=== PATIENT | female | born 1955 | race Caucasian/White ===

== ENCOUNTER 2019-09-18 11:52 | Emergency (ER) | payer BC ==
[~2019-09-18] VITALS: Ht 172.7 cm; Wt 106.4 kg
[2019-09-18 12:35] LABS: BASOPHILS # (AUTO) 0.1 X10'3 (0-0.2); BASOPHILS % (AUTO) 0.8 % (0-1); EOSINOPHILS # (AUTO) 0.4 X10'3 (0-0.9); EOSINOPHILS % (AUTO) 3.5 % (0-6); HEMATOCRIT 36.2 % (35.0-45.0); HEMOGLOBIN 12.2 g/dl (12.0-16.0); LYMPHOCYTES # (AUTO) 1.8 X10'3 (1.1-4.8); LYMPHOCYTES % (AUTO) 16.6 % (21-51); MEAN CORPUSCULAR HEMOGLOBIN 29.7 PG (27.0-31.0); MEAN CORPUSCULAR HGB CONC 33.6 g/dL (33.0-36.5); MEAN CORPUSCULAR VOLUME 88.2 FL (78-98); MEAN PLATELET VOLUME 8.2 FL (7.4-10.4); MONOCYTES # (AUTO) 0.9 X10'3 (0-0.9); MONOCYTES % (AUTO) 8.6 % (2-12); NEUTROPHILS # (AUTO) 7.5 X10'3 (1.8-7.7); NEUTROPHILS % (AUTO) 70.5 % (42-75); PLATELET COUNT 402 X10'3 (140-440); RED BLOOD COUNT 4.11 X10'6 (4.20-5.60); RED CELL DISTRIBUTION WIDTH 13.6 % (11.5-14.5); WHITE BLOOD COUNT 10.7 X10'3 (4.5-11.0)
[2019-09-18 12:47] LABS: ALANINE AMINOTRANSFERASE 53 U/L (12-78); ALBUMIN 3.2 G/DL (3.4-5.0); ALBUMIN/GLOBULIN RATIO 0.7 (1.1-1.5); ALKALINE PHOSPHATASE 130 IU/L (46-116); ANION GAP 5 (8-16); ASPARTATE AMINO TRANSFERASE 29 U/L (10-37); BILIRUBIN,TOTAL 0.2 MG/DL (0.1-1.0); BLOOD UREA NITROGEN 14 MG/DL (7-18); BUN/CREATININE RATIO 16.5 (6.6-38.0); CALCIUM 10.5 MG/DL (8.5-10.1); CHLORIDE 106 MMOL/L (99-107); CREATININE 0.85 MG/DL (0.40-0.90); GLUCOSE 148 MG/DL (70-104); POTASSIUM 3.6 MMOL/L (3.5-5.1); SODIUM 143 MMOL/L (135-145); TOTAL PROTEIN 7.6 G/DL (6.4-8.2); eGFR 67 ML/MIN
[2019-09-18] MEDS ORDERED: CefTRIAXone 2gm/D5W 50ml 50 ML IV ONE (12:50)
[2019-09-18] MEDS ORDERED: azithromycin 250mg tablet PO ONE (12:50)
[2019-09-18] MEDS ORDERED: BENZ-16 PO ×2 (13:08→15:36)
[2019-09-18] MEDS ORDERED: AZIT-63 PO ×2 (13:08→15:36)
[2019-09-18] MEDS ORDERED: ALBU8.5H8 IH ×2 (13:08→15:36)
[2019-09-18] MEDS ORDERED: PRED20TA PO ×2 (13:08→15:36)
[2019-09-18] MEDS ORDERED: methylPREDNISolone sod succ 125mg/2ml vial IV ONE (13:10)
[2019-09-18] MEDS ORDERED: normal saline 1000ML IV soln IVB ONE (13:25)
[2019-09-18 15:50] VITALS: BP 149/83
== END 2019-09-18 15:51 | disposition home or self-care (01) ==
LOC: ER 11:53
DX: J18.1 Lobar pneumonia, unspecified organism (principal); F17.210 Nicotine dependence, cigarettes, uncomplicated; Z88.6 Allergy status to analgesic agent; Z88.5 Allergy status to narcotic agent; Z79.2 Long term (current) use of antibiotics; Z79.899 Other long term (current) drug therapy
CPT/HCPCS: 36415; 80053; 83605; 85025; 87040; 87502; 87503; 96365; 96375; 99283; J0696; J2930; J7030

== ENCOUNTER 2020-12-10 16:53 | Emergency (ER) | payer MEDICARE ==
[~2020-12-10] VITALS: Ht 172.7 cm; Wt 102.2 kg
[~2020-12-10 16:53] MED LIST: ALPR-163 PO; ASPI-1265 PO; ATOR20TA66 PO; CLOP75TA15 PO; SERT50TA PO
[2020-12-10] MEDS ORDERED: aspirin 81mg tab.chew PO ONE (17:45)
[2020-12-10 18:12] LABS: BASOPHILS # (AUTO) 0.1 X10'3 (0-0.2); BASOPHILS % (AUTO) 0.8 % (0-1); EOSINOPHILS # (AUTO) 0.4 X10'3 (0-0.9); EOSINOPHILS % (AUTO) 4.7 % (0-6); HEMATOCRIT 37.3 % (35.0-45.0); HEMOGLOBIN 12.1 g/dl (12.0-16.0); LYMPHOCYTES % (AUTO) 24.1 % (21-51); MEAN CORPUSCULAR HGB CONC 32.6 g/dL (33.0-36.5); MEAN CORPUSCULAR VOLUME 85.9 FL (78-98); MEAN PLATELET VOLUME 8.4 FL (7.4-10.4); MONOCYTES # (AUTO) 0.6 X10'3 (0-0.9); MONOCYTES % (AUTO) 7.6 % (2-12); NEUTROPHILS # (AUTO) 5.3 X10'3 (1.8-7.7); NEUTROPHILS % (AUTO) 62.8 % (42-75); PLATELET COUNT 285 X10'3 (140-440); RED BLOOD COUNT 4.34 X10'6 (4.20-5.60); RED CELL DISTRIBUTION WIDTH 14.9 % (11.5-14.5); WHITE BLOOD COUNT 8.4 X10'3 (4.5-11.0)
[2020-12-10 18:18] LABS: ALANINE AMINOTRANSFERASE 26 U/L (12-78); ALBUMIN 3.6 G/DL (3.4-5.0); ALBUMIN/GLOBULIN RATIO 1.1 (1.1-1.5); ALKALINE PHOSPHATASE 109 IU/L (46-116); ANION GAP 7 (8-16); ASPARTATE AMINO TRANSFERASE 12 U/L (10-37); BILIRUBIN,TOTAL 0.2 MG/DL (0.1-1.0); BLOOD UREA NITROGEN 17 MG/DL (7-18); BUN/CREATININE RATIO 22.1 (6.6-38.0); CALCIUM 9.6 MG/DL (8.5-10.1); CHLORIDE 108 MMOL/L (99-107); CREATININE 0.77 MG/DL (0.40-0.90); GLUCOSE 89 MG/DL (70-104); SODIUM 146 MMOL/L (135-145); TOTAL CARBON DIOXIDE 31.2 MMOL/L (24-32); eGFR 75 ML/MIN
[2020-12-10 18:25] LABS: MAGNESIUM 1.9 MG/DL (1.5-2.4)
[2020-12-10] MEDS ORDERED: LISI10TA27 PO (18:33)
[2020-12-10 18:43] VITALS: BP 163/106
== END 2020-12-10 18:44 | disposition home or self-care (01) ==
LOC: ER 16:54
DX: I10 Essential (primary) hypertension (principal); R53.83 Other fatigue; F32.9 Major depressive disorder, single episode, unspecified; Z86.73 Personal history of transient ischemic attack (TIA), and cerebral infarction without residual deficits; Z88.5 Allergy status to narcotic agent; Z79.82 Long term (current) use of aspirin; Z79.899 Other long term (current) drug therapy
CPT/HCPCS: 36415; 71045; 80053; 83735; 83880; 84484; 85025; 93005; 99285

== ENCOUNTER 2021-02-09 11:02 | Emergency (ER) | payer MEDICARE ==
[~2021-02-09] VITALS: Ht 172.7 cm; Wt 101.0 kg
[~2021-02-09 11:02] MED LIST changes: +LISI10TA27 PO
--- NOTE | 2021-02-09 15:10 | NUR ---
US HAS FINISHED, DR Powers AWARE OF PTS C/O PAIN
[2021-02-09] MEDS ORDERED: acetaminophen 325mg tablet PO ONE (15:15)
[2021-02-09 15:40] VITALS: BP 131/81
== END 2021-02-09 15:41 | disposition home or self-care (01) ==
LOC: ER 11:03
DX: M71.21 Synovial cyst of popliteal space [Baker], right knee (principal); I10 Essential (primary) hypertension; Z86.73 Personal history of transient ischemic attack (TIA), and cerebral infarction without residual deficits; Z88.8 Allergy status to other drugs, medicaments and biological substances; Z79.82 Long term (current) use of aspirin; Z79.899 Other long term (current) drug therapy; Z79.02 Long term (current) use of antithrombotics/antiplatelets
CPT/HCPCS: 29505; 93971; 99284

== ENCOUNTER 2022-03-02 09:10 | Outpatient (CLI) | payer MEDICARE, OTHER ==
[2022-03-02] VITALS (8 sets, daily range): BP systolic 113–163; BP diastolic 48–87
[~2022-03-02] VITALS: Ht 172.7 cm; Wt 102.1 kg
[2022-03-02] MEDS ORDERED: normal saline 500ml IV soln 500 ML IV ONE (10:45)
[2022-03-02] MEDS ORDERED: metoprolol tartrate 1mg/ml inj IV PRN (10:45)
[2022-03-02] MEDS ORDERED: nitroGLYCERIN 0.4mg SUBLingual tab SL PRN (10:45)
[2022-03-02] MEDS ORDERED: regadenoson 0.4mg/5ml syringe IV ONE (10:45)
[2022-03-02] MEDS ORDERED: aminophylline 500mg/20ml vial IV PRN (10:45)
== END 2022-03-02 23:59 | disposition home or self-care (01) ==
LOC: RAD 09:10
PROVIDERS: ATTEND Internal Medicine Cardiovascular Disease
DX: I05.8 Other rheumatic mitral valve diseases (principal); G45.8 Other transient cerebral ischemic attacks and related syndromes
CPT/HCPCS: 78452; 93306; A9500; J0280; J2785; J7040

== ENCOUNTER 2023-11-01 05:34 | Day surgery (SDC) | payer MEDICARE, BC ==
[2023-10-25 16:13] LABS: BILIRUBIN,URINE NEGATIVE (Neg); CLARITY,URINE CLOUDY (Clear); COLOR,URINE YELLOW (Yellow); GLUCOSE, URINE NEGATIVE (Neg); KETONES,URINE TRACE mg/dl (Neg); LEUKOCYTE ESTERASE ,URINE NEGATIVE (Neg); NITRITES, URINE NEGATIVE (Neg); OCCULT BLOOD,URINE NEGATIVE (Neg); PROTEIN,URINE TRACE mg/dl (Neg); UROBILINOGEN,URINE 0.2 E.U/dL (0.2-1.0)
[2023-10-25 16:16] LABS: BASOPHILS # (AUTO) 0.1 X10'3 (0-0.2); BASOPHILS % (AUTO) 0.8 % (0-1); EOSINOPHILS # (AUTO) 0.3 X10'3 (0-0.9); EOSINOPHILS % (AUTO) 3.8 % (0-6); LYMPHOCYTES % (AUTO) 24.5 % (21-51); MEAN CORPUSCULAR HEMOGLOBIN 29.3 PG (27.0-31.0); MEAN CORPUSCULAR HGB CONC 33.6 g/dL (33.0-36.5); MEAN CORPUSCULAR VOLUME 87.3 FL (78-98); MEAN PLATELET VOLUME 8.7 FL (7.4-10.4); MONOCYTES # (AUTO) 0.5 X10'3 (0-0.9); MONOCYTES % (AUTO) 6.5 % (2-12); NEUTROPHILS # (AUTO) 5.2 X10'3 (1.8-7.7); NEUTROPHILS % (AUTO) 64.4 % (42-75); PRE OP HEMOGLOBIN 12.7 g/dL (12.0-16.0); PRE OP PLATELET COUNT 303 X10'3 (140-440); PRE OP WHITE BLOOD COUNT 8.1 10'3 (4.8-10.8); RED BLOOD COUNT 4.35 X10'6 (4.20-5.60); RED CELL DISTRIBUTION WIDTH 14.2 % (11.5-14.5)
[2023-10-25 16:37] LABS: UA COLLECTION TYPE NON-SPECIFIED
[2023-10-25 16:39] LABS: ALBUMIN 3.6 G/DL (3.4-5.0); ALBUMIN/GLOBULIN RATIO 0.9 (1.1-1.5); ALKALINE PHOSPHATASE 97 IU/L (46-116); BLOOD UREA NITROGEN 17 MG/DL (7-18); CALCIUM 9.8 MG/DL (8.5-10.1); CHLORIDE 107 MMOL/L (99-107); CREATININE 0.85 MG/DL (0.40-0.90); MUCUS STRANDS MODERATE /LPF (Neg); PRE OP ALT 27 U/L (30-65); PRE OP ANION GAP 6 (8-16); PRE OP AST 16 U/L (10-37); PRE OP BILIRUB, TOTAL 0.2 MG/DL (0.0-1.0); PRE OP GLUCOSE 87 MG/DL (70-104); PRE OP POTASSIUM 3.8 MMOL/L (3.4-5.1); PRE OP SODIUM 145 MMOL/L (135-145); SQUAMOUS EPITHELIAL CELL,UR MODERATE /LPF (FEW); TOTAL CARBON DIOXIDE 31.7 MMOL/L (24-32); TOTAL PROTEIN 7.4 G/DL (6.4-8.2); eGFR 67 ML/MIN
[2023-10-25 16:40] LABS: BACTERIA,URINE 1+ /HPF (Neg); RBC,URINE 0-2 /HPF (0-2); WBC,URINE 0-4 /HPF (0-4)
[2023-11-01] VITALS (35 sets, daily range): BP systolic 133–199; BP diastolic 62–92; PULSE 59–97; RESP 11–18; TEMP 97.4–98.7; O2SAT 93–100
[~2023-11-01] VITALS: Ht 172.7 cm; Wt 99.2 kg
[~2023-11-01 05:34] MED LIST changes: -ATOR20TA66 PO; -LISI10TA27 PO; +LOSA50TA64 PO; +MULT-1130 PO; +OXYC1TAB17 PO; +ROSU20TA73 PO
[2023-11-01] MEDS: famotidine 20mg tablet PO ONE (06:16)
[2023-11-01] MEDS: ceFOXitin 2GM-NS 100mL ADDvant 100 ML IV ONE (06:17)
[2023-11-01] MEDS: ringers solution, lacted 1,000 ML IV SCH ×3 (06:17→12:39)
[2023-11-01] MEDS ORDERED: clindamycin phosphate 40gm vag cream ONE (06:43)
[2023-11-01] MEDS ORDERED: BUPIVAcaine 2.5mg/ml inj 50ml vial (contains preservative) ONE (06:43)
[2023-11-01] MEDS ORDERED: neomy sulf/polymyxin B sulf. GU irrigation 1ml amp IR ONE (06:43)
[2023-11-01] MEDS ORDERED: vasoPRESSIN 20 units/ml inj. ONE (06:44)
[2023-11-01] MEDS ORDERED: fentaNYL /PF 50mcg/ml 5ml ampule ONE (07:30)
[2023-11-01] MEDS ORDERED: midazolam 1 mg/ML 2ml injection ONE (07:30)
[2023-11-01] MEDS ORDERED: propofol inj 20 ML IV ONE (07:30)
[2023-11-01] MEDS ORDERED: acetaminophen 1000 MG/100ml vial IV ONE (07:36)
[2023-11-01] MEDS ORDERED: sevoflurane 250ml liquid IH ONE (07:36)
[2023-11-01] MEDS ORDERED: morphine 2 MG/ML inj. syringe IV PRN (08:40)
[2023-11-01] MEDS ORDERED: ondansetron/PF 4mg/2ml inj IV PRN ×2 (08:40→11:50)
[2023-11-01] MEDS ORDERED: HYDROmorphone/PF 0.2 MG/ML SYRINGE IV PRN ×2 (08:40)
[2023-11-01] MEDS: BUPIVAcaine 2.5mg/ml inj 50ml vial (contains preservative) IJ ONE (09:06)
[2023-11-01] MEDS: neomy sulf/polymyxin B sulf. GU irrigation 1ml amp IR ONE (09:08)
[2023-11-01] MEDS: clindamycin phosphate 40gm vag cream VG ONE (10:26)
[2023-11-01] MEDS ORDERED: dexamethasone sod phosphate 4mg/ml inj. ONE (10:55)
[2023-11-01] MEDS ORDERED: ondansetron/PF 4mg/2ml inj ONE (10:55)
[2023-11-01] MEDS ORDERED: rocuronium 10mg/ml inj IV ONE (10:55)
[2023-11-01] MEDS ORDERED: glycopyrrolate 0.2mg/ml inj ONE (11:36)
[2023-11-01] MEDS ORDERED: neostigmine methylsulfate 1 MG/ML 10ml vial ONE (11:36)
[2023-11-01] MEDS ORDERED: fluoroscein sod 10% (100mg/ml) 5ml vial ONE (11:36)
[2023-11-01] MEDS ORDERED: normal saline 500ml IV soln 500 ML IV PRN (11:50)
[2023-11-01] MEDS ORDERED: metoclopramide 5 mg/ml inj IV PRN (11:50)
[2023-11-01] MEDS ORDERED: diphenhydrAMINE 50 mg/ml inj IV PRN (11:50)
[2023-11-01] MEDS ORDERED: LORazepam 2 mg/ml vial IV PRN (11:50)
[2023-11-01] MEDS ORDERED: temazepam 15mg capsule PO PRN (11:50)
[2023-11-01] MEDS ORDERED: magnesium hydroxide 30ml (MOM) UD suspension PO PRN (11:50)
[2023-11-01] MEDS ORDERED: traMADol 50MG tablet PO PRN (11:55)
[2023-11-01] MEDS: acetaminophen 1,000mg/100ml IV 100 ML IV ONE (12:34)
[2023-11-01] MEDS: labetalol 20mg/4ml (5mg/ml) syringe IV PRN (12:35)
[2023-11-01] MEDS: ketorolac trometh. 30mg/ml inj. IV PRN (12:50)
[2023-11-01] MEDS: hydrALAZINE 20mg/ml inj. IV PRN (13:12)
[2023-11-01] MEDS ORDERED: ALPRAZolam 0.5mg tablet PO PRN (14:00)
[2023-11-01] MEDS: morphine 4 MG/ML inj SYRINge IV PRN (14:32)
[2023-11-01] MEDS: oxyCODONE/APAP 10/325mg tablet PO PRN (17:18)
[2023-11-01] MEDS: docusate sod 100mg capsule PO SCH (20:00)
[2023-11-02 02:00] VITALS: BP 150/59; PULSE 107; RESP 18; TEMP 98.9; O2SAT 95
[2023-11-02 06:39] VITALS: BP 162/62; PULSE 16; RESP 20; TEMP 98.3; O2SAT 97
[2023-11-02 08:00] VITALS: RESP 18; O2SAT 98
[2023-11-02] MEDS: atorvastatin 20mg tablet PO SCH (08:00)
[2023-11-02] MEDS: multivitamins, therapeutics tablet PO SCH (08:07)
[2023-11-02] MEDS: enoxaparin 40mg/0.4ml syringe SQ SCH (08:07)
[2023-11-02 08:08] VITALS: BP_SYST 162; PULSE 84
[2023-11-02] MEDS: losartan 50mg tablet PO SCH (08:08)
[2023-11-02 08:27] LABS: BASOPHILS % (AUTO) 0.3 % (0-1); EOSINOPHILS % (AUTO) 0.2 % (0-6); HEMATOCRIT 34.3 % (35.0-45.0); HEMOGLOBIN 11.2 g/dl (12.0-16.0); LYMPHOCYTES # (AUTO) 1.4 X10'3 (1.1-4.8); LYMPHOCYTES % (AUTO) 10.7 % (21-51); MEAN CORPUSCULAR HEMOGLOBIN 28.8 PG (27.0-31.0); MEAN CORPUSCULAR HGB CONC 32.8 g/dL (33.0-36.5); MEAN PLATELET VOLUME 8.5 FL (7.4-10.4); MONOCYTES # (AUTO) 1.1 X10'3 (0-0.9); MONOCYTES % (AUTO) 8.1 % (2-12); NEUTROPHILS # (AUTO) 10.8 X10'3 (1.8-7.7); NEUTROPHILS % (AUTO) 80.7 % (42-75); PLATELET COUNT 282 X10'3 (140-440); RED BLOOD COUNT 3.89 X10'6 (4.20-5.60); RED CELL DISTRIBUTION WIDTH 14.1 % (11.5-14.5); WHITE BLOOD COUNT 13.4 X10'3 (4.5-11.0)
[2023-11-02 08:47] LABS: ALBUMIN 2.9 G/DL (3.4-5.0); ANION GAP 6 (8-16); BLOOD UREA NITROGEN 19 MG/DL (7-18); BUN/CREATININE RATIO 20.9 (10.0-20.0); CALCIUM 7.7 MG/DL (8.5-10.1); CHLORIDE 109 MMOL/L (99-107); CREATININE 0.91 MG/DL (0.40-0.90); GLUCOSE 119 MG/DL (70-104); POTASSIUM 4.2 MMOL/L (3.5-5.1); SODIUM 143 MMOL/L (135-145); TOTAL CARBON DIOXIDE 27.7 MMOL/L (24-32); eCRCL 60 ML/MIN; eGFR 61 ML/MIN
[2023-11-02 17:48] VITALS: RESP 17
== END 2023-11-02 18:15 | disposition home or self-care (01) ==
LOC: PAS 05:34 → ORTHO 4S 11:54 → PAS 11-02 18:15
PROVIDERS: ATTEND Obstetrics & Gynecology Obstetrics
DX: N81.89 Other female genital prolapse (principal); N72 Inflammatory disease of cervix uteri; N81.10 Cystocele, unspecified; N81.6 Rectocele; I10 Essential (primary) hypertension; F41.9 Anxiety disorder, unspecified; F32.A Depression, unspecified; G47.33 Obstructive sleep apnea (adult) (pediatric); I25.2 Old myocardial infarction; I20.9 Angina pectoris, unspecified; M19.90 Unspecified osteoarthritis, unspecified site; Z86.73 Personal history of transient ischemic attack (TIA), and cerebral infarction without residual deficits; Z79.1 Long term (current) use of non-steroidal anti-inflammatories (NSAID); Z79.899 Other long term (current) drug therapy; Z98.51 Tubal ligation status; Z88.5 Allergy status to narcotic agent; Z88.8 Allergy status to other drugs, medicaments and biological substances
CPT/HCPCS: 36415; 58552; 71046; 80048; 80053; 81001; 82948; 85025; 86885; 86900; 86901; 87081; J0131; J0360; J0694; J1100; J1650; J1885; J2250; J2270; J2405; J2704; J2710; J3010; J3490; J7030; J7120; Z7506; Z7508; Z7512; 88307; A4314; A4355; A4615; A4618; A6258; A7000; G0378

== ENCOUNTER 2024-08-05 15:22 | Outpatient (CLI) | payer MEDICARE, BC ==
[~2024-08-05 15:22] MED LIST changes: -ROSU20TA73 PO; +ROSU20TA98 PO
== END 2024-08-05 23:59 | disposition home or self-care (01) ==
LOC: VAS 15:22
PROVIDERS: ATTEND Internal Medicine
DX: I70.8 Atherosclerosis of other arteries (principal); G45.9 Transient cerebral ischemic attack, unspecified
CPT/HCPCS: 93880

== ENCOUNTER 2025-03-16 12:02 | Emergency (ER) | payer BC, MEDICARE ==
[~2025-03-16] VITALS: Ht 172.7 cm; Wt 82.4 kg
[2025-03-16 12:08] VITALS: BP 161/61; PULSE 100; O2SAT 97
--- NOTE | 2025-03-16 13:15 | Physician Documentation ---
History of Present Illness ~ Chief Complaint: Mechanical Fall Stated Complaint: FALL Time Seen by MD: 12:59 Primary Medical Doctor: [facility] 70 Old female presents to the ED today with a complaint of left hip pain after falling yesterday patient denies any blood thinners, but reports difficulty with ambulation. denies head strikes Day of Fall: Mar 16, 2025 Tetanus within 5 Years?: Yes Medication Reconciliation Allergies: Coded Allergies: codeine (Verified Allergy, Unknown, HIVES, 12/10/20) hydrocodone (Verified Allergy, Unknown, HIVES, 12/10/20) meperidine (Verified Allergy, Unknown, 10/25/23) Scheduled Aspirin (Aspirin), 81 MG PO DAILY@0830 Clopidogrel Bisulfate (Plavix), 75 MG PO DAILY Losartan Potassium (Losartan Potassium), 1 TAB PO DAILY, (Reported) Multivits-Min/Folic Acid/Biot (Hair, Skin & Nails Caplet), 1 TAB PO QAM, (Reported) Rosuvastatin Calcium (Rosuvastatin Calcium), 1 TAB PO QAM, (Reported) Sertraline Hcl* (Zoloft*), 1 TAB PO DAILY Scheduled PRN Alprazolam (Alprazolam), 1 TAB PO BID PRN for anxiety, (Reported) Oxycodone Hcl/Acetaminophen (Oxycodone-Acetaminophen 10-325), 1 TAB PO Q6H PRN for pain, (Reported) Past Medical History Past Medical History: CVA/TIA/Stroke, Hypertension, Depression Past Surgical History: no surgical history Patient History: FH myocardial infarction male first degree age known FATHER FH: COPD (chronic obstructive pulmonary disease) MOTHER FH: melanoma FATHER Alcohol Use: None Drug Use: none Lives In: Home Review of Systems All Other Systems at this time: Reviewed and Negative ROS As stated above in the HPI, otherwise all systems are reviewed and negative. Physical Exam Vital Signs: Temperature: 96.6, Source: Temporal, Heart Rate: 100, Respiratory Rate: 15, BP: 161/61, Pulse Oximetry: 97, Weight: 82.400 Physical Exam General: Alert, no apparent distress. Extremities no deformity. pain Range of motion of the left hip Neurologic: Oriented x4. Psychiatric: Normal mood and affect. Skin: Normal color, warm and dry. No edema, no ecchymosis. Progress Results/Orders Results/Orders Orders - ENRRIQUE BALLARD NP Hip Unilateral 2 Views (03/16/25 13:24) Completed Orders - ENRRIQUE BALLARD NP Hip Unilateral 2 Views (03/16/25 13:24) Ketorolac Trometh 15mg/Ml Vial (Toradol (03/16/25 14:40) Medications Received in ER Medications (Trade) Dose Ordered Sig/Kenyatta Route PRN Reason Start Time Stop Time Status Last Admin Dose Admin (Toradol injection) 15 mg ONCE ONCE IM 03/16/25 14:40 03/16/25 14:41 DC 03/16/25 14:53 15 MG Vital Signs 03/16/25 03/16/25 03/16/25 03/16/25 12:08 13:52 14:53 15:06 Temp 96.6 96.6 Pulse 100 Resp 15 16 16 B/P (MAP) 161/61 Pulse Ox 97 Medical Decision Making Findings A COULD NOT APPRECIATE ANY SIGNS OF ACUTE FRACTURE ON THE LEFT HIP. THERE IS CLEARLY OF DEGENERATION HOWEVER,. TREATED HER WITH TORADOL ADVISED HER TO FOLLOW UP WITH HER PRIMARY CARE. A BENEFIT FROM OF PHYSICAL THERAPY FOR SYMPTOMS PERSIST Differential Dx:Considerations: Include: Closed head injury, Cardiac injury, Fracture(s), Intraabdominal injury, Pneumothorax, Cerebral contusion, Pulmonary contusion, Spine injury, Tracheal injury, Urological injury, Vascular injury, Abrasion(s), Contusion(s), Foreign body(s), Hematoma(s), Laceration(s), Encephalopathy, Other Departure Disposition: 01 HOME / SELF CARE / HOMELESS Impression: Primary Impression: Hip pain Condition: Stable Discharge Instructions: Fall Prevention in the Home, Adult, [id number] Referrals: NO PRIMARY CARE PROVIDER (PCP) Education Educated: Patient Educated regarding: diagnosis Signature Scribe Signature: [email or web address] Attestation: Scribed for Enrrique Ballard [employer] by Enrrique Andres NP . 03/16/25 18:22 ENRRIQUE BALLARD NP Mar 16, 2025 13:15
--- NOTE | 2025-03-16 14:04 | RADIOLOGY REPORT ---
CLINICAL INDICATION: fall, trauma, pain TECHNIQUE: Left DI HIP UNILATERAL 2 VIEWS Comparison: None FINDINGS/IMPRESSION: : There is no evidence of acute fracture or dislocation. Soft tissues are unremarkable. Moderate degenerative changes of bilateral hips.
[2025-03-16 14:53] VITALS: RESP 16
[2025-03-16] MEDS: ketorolac trometh 15mg/ml vial 15 MG/ML ML IM ONE (14:53)
[2025-03-16 15:06] VITALS: TEMP 96.6
== END 2025-03-16 15:08 | disposition home or self-care (01) ==
LOC: ER 12:03
DX: M25.552 Pain in left hip (principal); I10 Essential (primary) hypertension; F32.A Depression, unspecified; Z86.73 Personal history of transient ischemic attack (TIA), and cerebral infarction without residual deficits; Z88.5 Allergy status to narcotic agent; Z79.82 Long term (current) use of aspirin; Z79.899 Other long term (current) drug therapy
CPT/HCPCS: 73502; 96372; 99283; J1885